=== PATIENT | female | born 1975 | race Two or more races ===

== ENCOUNTER 2019-12-24 19:39 | Emergency (ER) | payer MEDICAID ==
[~2019-12-24] VITALS: Ht 165.1 cm; Wt 97.1 kg
[2019-12-24 20:49] LABS: Basophils % (auto) 0.4 % (0.0-2.0); Eosinophils # (auto) 0.1 10 ^3/uL (0-0.8); Lymphocytes % (auto) 27.5 % (10.0-50.0); Monocytes # (auto) 0.5 10 ^3/uL (0-1.3); Nucleated Red Blood Cells % 0.1 %
[2019-12-24 20:51] LABS: Basophils # (auto) 0 10 ^3/uL (0-0.2); Eosinophils % (auto) 0.8 % (0.0-7.0); Hematocrit 39.5 % (36.0-46.0); Hemoglobin 12.9 g/dL (12.2-16.2); Lymphocytes # (auto) 3.4 10 ^3/uL (0.4-5.4); Mean Corpuscular Hemoglobin 26.8 pg (28.0-32.0); Mean Corpuscular Hgb Conc. 32.7 g/dL (32.0-36.0); Mean Corpuscular Volume 82.1 fL (80.0-100.0); Monocytes % (auto) 4.5 % (0.0-12.0); Neutrophils # (auto) 8.2 10 ^3/uL (1.6-8.6); Neutrophils % (auto) 66.8 % (37.0-80.0); Platelet Count (auto) 366 10^3/uL (140-450); Red Blood Cells 4.81 10^6/uL (4.0-5.20); Red Cell Distribution Width 14.2 % (11.8-14.3); White Blood Cell 12.3 10^3/uL (4.4-10.8)
[2019-12-24 20:54] LABS: Urine Bacteria FEW /hpf (None Seen); Urine Blood Negative /uL (Negative); Urine Specific Gravity 1.007 (1.001-1.035); Urine WBC 1 /hpf (0 - 5)
[2019-12-24 21:08] LABS: Albumin 3.8 g/dL (3.4-5.0); Anion Gap 7 (5-15); Blood Urea Nitrogen 10 mg/dL (7-18); Calcium 8.9 mg/dL (8.5-10.1); Carbon Dioxide 30 mmol/L (21-32); Chloride 101 mmol/L (98-107); Glucose 111 mg/dL (74-106); Potassium 3.2 mmol/L (3.5-5.1); Sodium 138 mmol/L (136-145)
[2019-12-24 21:15] LABS: Alanine Aminotransferase 34 U/L (13-56); Alkaline Phosphatase 113 U/L (45-117); Aspartate Aminotransferase 19 U/L (15-37); BUN/Creatinine Ratio 11.1; Bilirubin, Total 0.2 mg/dL (0.2-1.0); GFR African American 87 mL/min; GFR Non-African American 72 mL/min; Total Protein 7.6 g/dL (6.4-8.2)
[2019-12-24] MEDS ORDERED: cefTRIAXone 1GM/50ML D5W 50 ML IV ONE (22:30)
[2019-12-25 00:19] VITALS: BP 146/83
== END 2019-12-25 02:00 | disposition home or self-care (01) ==
LOC: ER 19:39
DX: J18.9 Pneumonia, unspecified organism (principal); J01.00 Acute maxillary sinusitis, unspecified; Z20.828 Contact with and (suspected) exposure to other viral communicable diseases
CPT/HCPCS: 36415; 71046; 80053; 81001; 84484; 85025; 87426; 93005; 96365; 99285; C9803; J0696; U0003

== ENCOUNTER 2022-10-01 16:11 | Inpatient (IN) | payer MEDICAID ==
[~2022-10-01] VITALS: Ht 165.1 cm; Wt 96.0 kg
[2022-10-01] MEDS ORDERED: ONDANSETRON HCL 4 MG/2 ML VIAL IV ONE (16:45)
[2022-10-01] MEDS ORDERED: KETOROLAC TROMETH 30 MG/ML 1ML VIAL IV ONE (16:45)
[2022-10-01] MEDS ORDERED: SODIUM CHLORIDE 0.9% 1,000 ML IVB ONE (16:45)
[2022-10-01 17:01] LABS: Basophils # (auto) 0.1 10 ^3/uL (0-0.2); Basophils % (auto) 0.6 % (0.0-2.0); Eosinophils # (auto) 0.1 10 ^3/uL (0-0.8); Eosinophils % (auto) 0.5 % (0.0-7.0); Hemoglobin 12.5 g/dL (12.2-16.2); Lymphocytes # (auto) 2.4 10 ^3/uL (0.4-5.4); Lymphocytes % (auto) 18.5 % (10.0-50.0); Mean Corpuscular Hemoglobin 27.2 pg (28.0-32.0); Mean Corpuscular Hgb Conc. 32.9 g/dL (32.0-36.0); Mean Corpuscular Volume 82.8 fL (80.0-100.0); Monocytes # (auto) 0.5 10 ^3/uL (0-1.3); Monocytes % (auto) 3.7 % (0.0-12.0); Neutrophils # (auto) 9.9 10 ^3/uL (1.6-8.6); Neutrophils % (auto) 76.7 % (37.0-80.0); Nucleated Red Blood Cells % 0.1 %; Red Blood Cells 4.59 10^6/uL (4.0-5.20); Red Cell Distribution Width 13.5 % (11.8-14.3); White Blood Cell 12.9 10^3/uL (4.4-10.8)
[2022-10-01 17:03] LABS: Urine Bacteria FEW /hpf (None Seen); Urine Blood 3+ /uL (Negative); Urine Mucus FEW (None Seen); Urine Specific Gravity 1.014 (1.001-1.035); Urine WBC 767 /hpf (0 - 5); Urine WBC Clumps PRESENT /hpf (None Seen)
[2022-10-01 17:20] LABS: Albumin 3.9 g/dL (3.4-5.0); Calcium 9.1 mg/dL (8.5-10.1); Potassium 4.4 mmol/L (3.5-5.1)
[2022-10-01 17:24] LABS: BUN/Creatinine Ratio 14.7 (10.0-20.0); Bilirubin, Total 0.4 mg/dL (0.2-1.0)
[2022-10-01] MEDS ORDERED: metroNIDAZOLE 500MG/100ML 100 ML IV ONE (18:30)
[2022-10-01] MEDS ORDERED: cefTRIAXone 1GM/50ML D5W 50 ML IV ONE (18:45)
[2022-10-01] MEDS ORDERED: HYDROcodone-ACET 5/325MG TAB PO PRN (20:30)
[2022-10-01] MEDS ORDERED: DEXTROSE (50%) 50ML SYRG IV PRN (20:30)
[2022-10-01] MEDS ORDERED: ONDANSETRON HCL 4 MG/2 ML VIAL IV PRN (20:30)
[2022-10-01] MEDS ORDERED: TEMAZEPAM 15 MG CAP PO PRN (20:30)
[2022-10-02] MEDS: ATORVASTATIN 20 MG TAB PO SCH ×2 (02:32→22:30)
[2022-10-02] MEDS: InsuLIN REG 1unit/0.01ml Soln (100units/ml) SC SCH ×5 (02:44→22:38)
[2022-10-02] MEDS: ACCU-CHEK COMFORT CURVE STRIP VI SCH ×5 (02:44→22:28)
[2022-10-02 06:43] LABS: Basophils # (auto) 0 10 ^3/uL (0-0.2); Basophils % (auto) 0.3 % (0.0-2.0); Eosinophils # (auto) 0 10 ^3/uL (0-0.8); Eosinophils % (auto) 0.4 % (0.0-7.0); Hematocrit 36.8 % (36.0-46.0); Hemoglobin 12.1 g/dL (12.2-16.2); Lymphocytes % (auto) 24.8 % (10.0-50.0); Mean Corpuscular Hemoglobin 27.1 pg (28.0-32.0); Mean Corpuscular Volume 82.3 fL (80.0-100.0); Monocytes # (auto) 0.5 10 ^3/uL (0-1.3); Monocytes % (auto) 4.3 % (0.0-12.0); Neutrophils # (auto) 8.4 10 ^3/uL (1.6-8.6); Neutrophils % (auto) 70.2 % (37.0-80.0); Red Blood Cells 4.47 10^6/uL (4.0-5.20); Red Cell Distribution Width 13.3 % (11.8-14.3)
[2022-10-02 06:52] LABS: Calcium 8.2 mg/dL (8.5-10.1); Potassium 3.4 mmol/L (3.5-5.1)
[2022-10-02] MEDS: LISINOPRIL 5 MG TAB PO SCH (08:31)
[2022-10-02] MEDS: PANTOPRAZOLE 40 MG TAB PO SCH (08:31)
[2022-10-02 10:07] VITALS: BP 124/70
[2022-10-02] MEDS: ACETAMINOPHEN 325 MG TAB PO PRN ×2 (10:37→11:52)
[2022-10-02 13:00] VITALS: BP 92/43
[2022-10-02] MEDS ORDERED: cefTRIAXone 1GM/50ML D5W 50 ML IV ONE (13:00)
[2022-10-02] MEDS ORDERED: metroNIDAZOLE 500MG/100ML 100 ML IV ONE (13:00)
[2022-10-02 17:01] VITALS: BP 96/61
[2022-10-02 18:00] VITALS: BP 96/61
[2022-10-02] MEDS: metroNIDAZOLE 500MG/100ML 100 ML IV SCH ×2 (18:31→22:30)
[2022-10-02 20:00] VITALS: BP 111/66
[2022-10-02 22:00] VITALS: BP 111/66
[2022-10-03 05:00] VITALS: BP 111/61
[2022-10-03] MEDS: metroNIDAZOLE 500MG/100ML 100 ML IV SCH ×2 (05:33→14:16)
[2022-10-03] MEDS: InsuLIN REG 1unit/0.01ml Soln (100units/ml) SC SCH ×2 (06:25→11:30)
[2022-10-03] MEDS: ACCU-CHEK COMFORT CURVE STRIP VI SCH ×2 (06:25→11:25)
[2022-10-03 06:30] LABS: Calcium 8.1 mg/dL (8.5-10.1); Potassium 3.7 mmol/L (3.5-5.1)
[2022-10-03] MEDS: ACETAMINOPHEN 325 MG TAB PO PRN (06:30)
[2022-10-03 06:32] LABS: BUN/Creatinine Ratio 9.8 (10.0-20.0)
[2022-10-03 06:33] LABS: Basophils # (auto) 0 10 ^3/uL (0-0.2); Basophils % (auto) 0.4 % (0.0-2.0); Eosinophils # (auto) 0.1 10 ^3/uL (0-0.8); Eosinophils % (auto) 1.6 % (0.0-7.0); Hematocrit 33.7 % (36.0-46.0); Hemoglobin 11.1 g/dL (12.2-16.2); Lymphocytes # (auto) 3.1 10 ^3/uL (0.4-5.4); Mean Corpuscular Hemoglobin 27.3 pg (28.0-32.0); Mean Corpuscular Volume 82.7 fL (80.0-100.0); Monocytes # (auto) 0.4 10 ^3/uL (0-1.3); Monocytes % (auto) 6.1 % (0.0-12.0); Neutrophils # (auto) 3.1 10 ^3/uL (1.6-8.6); Neutrophils % (auto) 45.9 % (37.0-80.0); Nucleated Red Blood Cells % 0.1 %; Red Blood Cells 4.08 10^6/uL (4.0-5.20); Red Cell Distribution Width 13.5 % (11.8-14.3); White Blood Cell 6.8 10^3/uL (4.4-10.8)
[2022-10-03 09:00] VITALS: BP 122/77
[2022-10-03] MEDS ORDERED: cefTRIAXone 1GM/50ML D5W 50 ML IV SCH (09:00)
[2022-10-03] MEDS: PANTOPRAZOLE 40 MG TAB PO SCH (10:03)
[2022-10-03] MEDS: LISINOPRIL 5 MG TAB PO SCH (10:04)
[2022-10-03] MEDS ORDERED: CIPR-173 PO (11:28)
[2022-10-03] MEDS ORDERED: METR-344 PO (11:28)
[2022-10-03 13:00] VITALS: BP 137/71
[2022-10-03 14:33] VITALS: BP 122/77
== END 2022-10-03 16:48 | disposition home or self-care (01) | DRG 249 ==
LOC: ER 16:15 → OVERFLOW 20:33 → WEST WING 10-02 09:49
PROVIDERS: ADMIT Nurse Practitioner; ATTEND Internal Medicine Pulmonary Disease
DX: K52.9 Noninfective gastroenteritis and colitis, unspecified (principal); N12 Tubulo-interstitial nephritis, not specified as acute or chronic; E11.9 Type 2 diabetes mellitus without complications; I10 Essential (primary) hypertension; E66.01 Morbid (severe) obesity due to excess calories; Z68.35 Body mass index [BMI] 35.0-35.9, adult; Z90.710 Acquired absence of both cervix and uterus
CPT/HCPCS: 36415; 74176; 80048; 80053; 81001; 82962; 83690; 85025; G0378; J0696; J1815; J1885; J2405; J3490

== ENCOUNTER 2023-11-21 14:20 | Emergency (ER) | payer MEDICAID ==
[~2023-11-21] VITALS: Ht 165.1 cm; Wt 90.6 kg
[~2023-11-21 14:20] MED LIST: CIPR-173 PO; METR-344 PO
[2023-11-21 16:34] VITALS: BP 121/67; PULSE 88; RESP 17; TEMP 98.1; O2SAT 98
[2023-11-21] MEDS: HYDROcodone-ACET 5/325MG TAB PO ONE (17:12)
[2023-11-21] MEDS: KETOROLAC TROMETH 60MG/2ML VIAL IM ONE (17:13)
[2023-11-21] MEDS ORDERED: GABA-339 PO (17:49)
[2023-11-21] MEDS ORDERED: PRED20TA2 PO (17:49)
== END 2023-11-21 17:52 | disposition home or self-care (01) ==
LOC: ER 14:20
DX: M54.42 Lumbago with sciatica, left side (principal); Z90.710 Acquired absence of both cervix and uterus; Z79.899 Other long term (current) drug therapy
CPT/HCPCS: 93971; 96372; 99285; J1885